=== PATIENT | female | born 1940 | race Caucasian/White ===

== ENCOUNTER 2016-11-21 12:03 | Outpatient (CLI) | payer MEDICARE, OTHER ==
[2015-11-15 19:26] VITALS: BP 140/42
[2016-11-21 12:38] LABS: BASOPHILS % 0.4 (0.0-1.5); EOSINOPHILS % 5.5 % (0.0-6.8); MEAN CORPUSCULAR HEMOGLOBIN 22.7 pg (28.0-34.0); MEAN CORPUSCULAR VOLUME 81.8 fl (80.0-100.0); NEUTROPHILS # 1.8 # k/uL (1.4-7.7)
[2016-11-21 12:52] LABS: eGFR (African) > 60; eGFR (Non-African) > 60
--- NOTE | 2016-11-21 15:51 | Diagnostic Imaging Report ---
[facility] [address] [facility].[address] [address] Report Submission Date: November 21, 2016 3:40:19 PM CDT Patient Study Name: LIBBY LAZCANO Date: November 21, 2016 12:23:25 PM CDT Modality Type: CR Gender: F Description: CHEST : 40 Institution: [facility] Physician: OWEN MCLEAN - OP 2 views of the chest History: PRODUCTIVE COUGH FOR A COUPLE WEEKS. SMOKER Findings: No comparison studies Cardiomegaly is present, aorta is tortuous Rightlower lung and lingular atelectasis is present. There is mild pulmonary vascular congestion. Left costophrenic angle is blunted Demineralized bones with loss of height of lower thoracic vertebral bodies Impression: Atelectasis right lower lung and lingula. Cardiomegaly. Mild pulmonary vascular congestion. Tiny left pleural effusion versus pleural thickening. Electronically signed on November 21, 2016 3:40:19 PM CDT by: Piedad MALDONADO
== END 2016-11-21 12:04 ==
LOC: RAD 12:03
PROVIDERS: ATTEND Family Medicine
DX: R60.0 Localized edema (principal); R05 Cough
CPT/HCPCS: 36415; 71020; 80048; 83880; 85025

== ENCOUNTER 2016-11-29 12:10 | Outpatient (CLI) | payer MEDICARE, OTHER ==
[2015-11-15 19:26] VITALS: BP 140/42
== END 2016-11-29 12:11 ==
LOC: CARD 12:10
PROVIDERS: ATTEND Internal Medicine Cardiovascular Disease
DX: R60.9 Edema, unspecified (principal)

== ENCOUNTER 2017-01-03 18:59 | Emergency (ER) | payer MEDICARE, OTHER ==
[2017-01-03] MEDS ORDERED: 0.9 % SODIUM CHLORIDE 1,000 ML IV ONE (19:12)
[2017-01-03] MEDS ORDERED: ONDANSETRON HCL/PF 4 MG/ 2ML VIAL ONE (19:12)
[2017-01-03 19:35] LABS: BASOPHILS % 0.4 (0.0-1.5); EOSINOPHILS % 2.9 % (0.0-6.8); MEAN CORPUSCULAR HEMOGLOBIN 29.2 pg (28.0-34.0); MEAN CORPUSCULAR VOLUME 96.1 fl (80.0-100.0); MONOCYTES % 7.6 % (0.0-11.0); NEUTROPHILS # 2.7 # k/uL (1.4-7.7)
[2017-01-03 19:41] VITALS: BP 169/82
[2017-01-03] MEDS: 0.9 % SODIUM CHLORIDE 1,000 ML IV ONE (19:42)
[2017-01-03] MEDS: ONDANSETRON HCL/PF 4 MG/ 2ML VIAL IVP ONE ×2 (19:42→21:50)
--- NOTE | 2017-01-03 19:44 | ED Physician Documentation ---
General Adult - HISTORIAN Historian: patient - HPI Stated Complaint: NV; MS CHANGES Chief Complaint: General Adult Further Comments: yes (76 year old female patient brought in by for complaints of nausea and increased confusion. states they usually go to the [facility] "when she gets like this and her ammonia is high". states she has been getting worse "for days". Patient states "it started a few hours ago.") - ROS CONST: recent illness EYES/ENT: none CVS/RESP: none GI/: none MS/SKIN/LYMPH: none NEURO/PSYCH: denies: headache - PAST HX Past History: hypertension, other (GERD, depression, pancytopenia, anemia) Other History: diabetes Type 2 Allergies/Adverse Reactions: Allergies Allergy/AdvReac Type Severity Reaction Status Date / Time metronidazole [From Flagyl] AdvReac Unknown Nausea/Vomi Verified 01/03/17 20:22 ting - SOCIAL HX Smoking History: cigarettes - FAMILY HX Family History: No - VITAL SIGNS Vital Signs: Vital Signs Temp Pulse Resp BP Pulse Ox 98.7 F 88 20 169/82 97 01/03/17 19:10 01/03/17 19:10 01/03/17 19:10 01/03/17 19:10 01/03/17 19:10 - REVIEWED ASSESSMENTS Nursing Assessment Reviewed: Yes Vitals Reviewed: Yes Progress - Progress Progress: Explained ammonia level was send out at [facility]. Patient states she took her lactulose today. Last BM this morning. 2014 Reviewed lab results with patient and . Requesting transfer to [facility]. [address] Recio in ER - patient's medical records show history of portal hypertension, hepatic encephalopathy, elevated ammonia and liver cirrhosis. Medicine paged for direct admit to floor. [address] Angel - patient accepted for observation admission, for evaluation of ammonia and possible treatment. 2129 Transfer held due to critical patient in ER. 2149 Dry heaves, patient c/o nausea - additional zofran given 2214 Patient resting quietly, VS stable - EKG/XRAY/CT EKG: rhythm (SR, rate 96, no acute changes. ) ED Results Lab/Radiology - Lab Results Lab Results: Lab Results 01/03/17 19:27 WBC 5.00 K/ul K/ul (4.00-12.00) RBC 3.92 M/ul M/ul (3.90-5.20) Hgb 11.5 g/dL L g/dL (12.0-16.0) Hct 37.6 % % (34.5-46.5) MCV 96.1 fl fl (80.0-100.0) MCH 29.2 pg pg (28.0-34.0) MCHC 30.4 g/dL g/dL (30.0-36.0) RDW 20.2 % H % (11.3-14.3) Plt Count 132 K/mm3 K/mm3 (130-400) Neut % (Auto) 54.5 % % (39.0-79.0) Lymph % (Auto) 31.7 % % (16.0-50.0) [place] % (Auto) 7.6 % % (0.0-11.0) Eos % (Auto) 2.9 % % (0.0-6.8) Baso % (Auto) 0.4 (0.0-1.5) Neut # (Auto) 2.7 # k/uL # k/uL (1.4-7.7) Lymph # (Auto) 1.6 # k/uL # k/uL (0.6-4.0) [place] # (Auto) 0.4 # k/uL # k/uL (0.0-0.9) Eos # (Auto) 0.2 # k/uL # k/uL (0.0-0.6) Baso # (Auto) 0.0 # k/uL # k/uL (0.0-0.5) Reactive Lymphs % 2.9 % % (0.0-5.0) Reactive Lymphs # 0.2 # k/uL # k/uL (0.0-0.8) - Radiology Radiology Impressions: Examination: CT head without contrast History: Loss of vision Comparison exam: 04 February 2014 Technique: Noncontrast head CT protocol. Findings: Ventricles and sulci are prominent, though consistent for patient age. Cerebrocerebellar parenchyma demonstrates periventricular low attenuation consistent with small vessel disease. No evidence for parenchymal hemorrhage. No evidence for mass or mass effect. No midline shift. No extra axial fluid collections. Partial visualization of the paranasal sinuses, mastoid air cells, orbits, skull and scalp without gross regularity. Impression: Advanced age related changes. No acute parenchymal process. No hemorrhage. Electronically signed on Jan 03, 2017 8:31:34 PM CDT by: Antione Gandhi - Orders Orders: ED Orders Category Date Time Status Continuous EKG monitoring Q30M Care 01/03/17 19:14 Active Continuous Pulse Oximetry Q30M Care 01/03/17 19:[address] IV Lock 1T Care 01/03/17 19:14 Active AMMONIA Stat Lab 01/03/17 19:26 Received BNP [NT-proBNP] Stat Lab 01/03/17 19:26 Received CBC/PLATELET/DIFF Stat Lab 01/03/17 19:27 Completed CMP Stat Lab 01/03/17 19:27 Received TROPONIN I (cTnI) Stat Lab 01/03/17 19:26 Received UA W/MICRO IF INDICATED Stat Lab 01/03/17 19:14 Ordered 0.9 % Sodium Chloride [Normal Saline] 1,000 ml Med 01/03/17 19:12 Discontinued IV .STK-MED 0.9 % Sodium Chloride [Normal Saline] 1,000 ml Med 01/03/17 19:15 Discontinued IV NOW Ondansetron HCl/Pf [Zofran 4 mg/2 ml] Med 01/03/17 19:12 Discontinued 4 mg .ROUTE .STK-MED ONE Ondansetron HCl/Pf [Zofran 4 mg/2 ml] Med 01/03/17 19:15 Discontinued 4 mg IVP NOW ONE Oxygen Daily Oxygen 01/03/17 19:15 Ordered EKG WITH COMPARISON Stat Ther 01/03/17 19:14 Ordered General Adult Physical Exam - PHYSICAL EXAM GENERAL APPEARANCE: moderate distress EENT: eye inspection normal, PEPE RESPIRATORY: no resp distress, chest non-tender, breath sounds normal CVS: heart sounds normal, equal pulses, no murmur, no gallop, PMI nml, no JVD, no friction rub, tachycardia ABDOMEN: soft, no organomegaly, no abdominal bruit, no distension, abnormal bowel sounds (hypoactive) SKIN: normal color, warm/dry, NR, INT, PAL, DR EXTREMITIES: non-tender, normal range of motion, no evidence of injury, no edema , J, YARD JACKER NEURO: oriented X3, CN's nml as tested, motor nml, sensation nml, mood/affect nml Discharge Clincal Impression: Change in mental status Qualifiers: Altered mental status type: disorientation Qualified Code(s): R41.0 - Disorientation, unspecified Referrals: Katrin Carias MD [Primary Care Provider] - 2 Days Condition: Stable Disposition: 01 HOME, SELF-CARE Decision to Admit: NO Decision Time: 21:28
[2017-01-03 19:47] LABS: eGFR (African) > 60; eGFR (Non-African) > 60
--- NOTE | 2017-01-04 05:54 | Diagnostic Imaging Report ---
ENRRIQUE BARRIOS (BARRY) - ER~ [facility] [address] [facility] [address] [place] [address]. [address] ~ ~ ~ ~ Report Submission Date: Jan 03, 2017 10:23:57 PM CDT Patient ~ Study Name: LIBBY LAZCANO ~ Date: Jan 03, 2017 10:02:24 PM CDT ~ Modality Type: CT\SR Gender: F ~ Description: CT BRAIN W/O CONTRAST : 40 ~ Institution: [facility] Physician: ENRRIQUE BARRIOS) - REGGIE ~ ~ ~ ~ Head CT without contrast Clinical history: ~Altered mental status. Technique: ~CT examination of the brain is performed in contiguous axial slices without the use of contrast. ~Sagittal and coronal reconstructions are performed by the technologist. ~Comparison is made to a prior study dated 2015. Findings: ~The fourth ventricle lies in a normal midline position. ~The ventricles and sulci are prominent secondary to atrophy. ~Chronic ischemic changes are present in the periventricular regions. ~There has been no interval development of hypodense or hyperdense mass or intracranial hemorrhage. ~ Intracranial atherosclerosis is demonstrated. ~The visualized paranasal sinuses and the mastoid air cells are clear. Impression: 1. ~Atrophy and chronic small vessel ischemic changes. 2. ~Intracranial atherosclerosis. 3. ~No acute intracranial changes. ~ Electronically signed on Jan 03, 2017 10:23:57 PM CDT by: Antoni MALDONADO
== END 2017-01-03 22:15 | disposition home or self-care (01) ==
LOC: ED 18:59
DX: R41.0 Disorientation, unspecified (principal)
CPT/HCPCS: 70450; 80053; 82140; 83880; 84484; 85025; 96361; 96374; 99283; J2405; J7030; S1016

== ENCOUNTER 2017-01-20 17:35 | Observation (INO) | payer MEDICARE, OTHER ==
[2017-01-20 18:24] LABS: APPEARANCE,URINE Cloudy (CLEAR); COLOR,URINE Yellow (YELLOW); OCCULT BLOOD,URINE 2+ (NEGATIVE)
[2017-01-20 18:36] LABS: BASOPHILS % 0.5 (0.0-1.5); EOSINOPHILS % 5.1 % (0.0-6.8); MEAN CORPUSCULAR HEMOGLOBIN 30.5 pg (28.0-34.0); MONOCYTES % 7.4 % (0.0-11.0); NEUTROPHILS # 1.8 # k/uL (1.4-7.7)
[2017-01-20 18:46] LABS: eGFR (African) > 60; eGFR (Non-African) > 60
[2017-01-20] MEDS ORDERED: VANCOMYCIN HCL 1 GM in 0.9 % SODIUM CHLORIDE 500 ML IV ONE (20:14)
--- NOTE | 2017-01-20 20:39 | ED Physician Documentation ---
Altered Mental Status - HISTORIAN Historian: paramedics - HPI Stated Complaint: Mental Status Changes Chief Complaint: Altered Mental Status Additional Information: Pt. apparently called 911 then when paramedics arrived stated she did not call them. Brought in by EMS because she was confused and lives alone at the scene. Onset: cannot confirm onset Duration: sudden onset Last known Well Date: 01/19/17 Last Known Well Time: 12:00 Last known Well Code/Unknown Code: Unknown Character of Altered Mental Status: confused Context: other (lives alone because her is in the hospital) Cognition is Usually: alert, oriented x3 Gait is Usually: walks w/o assistance Further Comments: no - ROS EYES/ENT: none CVS/RESP: none GI/: none MS/SKIN/LYMPH: none NEURO/PSYCH: none - PAST HX Past History: confusion, diabetes Type 2, depression Other History: hypertension, other (gerd) Surgeries/Procedures: none Immunizations: referred to PCP Allergies/Adverse Reactions: Allergies Allergy/AdvReac Type Severity Reaction Status Date / Time metronidazole [From Flagyl] AdvReac Unknown Nausea/Vomi Verified 01/03/17 20:22 ting - SOCIAL HX Smoking History: non-smoker Alcohol Use: none Drug Use: none - FAMILY HX Family History: no significant history - VITAL SIGNS Vital Signs: Vital Signs Temp Pulse Resp BP Pulse Ox 98.8 F 78 18 162/71 98 01/20/17 17:35 01/20/17 17:57 01/20/17 17:35 01/20/17 17:35 01/20/17 19:57 - REVIEWED ASSESSMENTS Nursing Assessment Reviewed: Yes Vitals Reviewed: Yes Progress - Results/Orders Results/Orders: cbc, cmp, ua, pt/ptt, trop, bnp, cxr, ekg ordered - Progress Progress: pt. stable entire time in er Critical Care Note - Critical Care Note Total Time (mins): 0 ED Results Lab/Radiology - Lab Results Lab Results: Lab Results 01/20/17 01/20/17 01/20/17 18:15 18:15 18:15 WBC RBC Hgb Hct MCV MCH MCHC RDW Plt Count Neut % (Auto) Lymph % (Auto) [place] % (Auto) Eos % (Auto) Baso % (Auto) Neut # (Auto) Lymph # (Auto) [place] # (Auto) Eos # (Auto) Baso # (Auto) Reactive Lymphs % Reactive Lymphs # PT 12.7 Seconds H Seconds (9.4-11.6) INR 1.21 H (0.9-1.2) APTT Pending Sodium Potassium Chloride Carbon Dioxide BUN Creatinine Estimated Creat Clear Est GFR ( Amer) Est GFR (Non-Af Amer) Glucose Calcium Total Bilirubin AST ALT Alkaline Phosphatase Troponin I < 0.03 ng/mL L ng/mL (0.03-0.06) NT-Pro-B Natriuret Pep 257.3 pg/mL pg/mL (15.0-450.0) Total Protein Albumin Urine Color Yellow (YELLOW) Urine Appearance Cloudy (CLEAR) Urine pH 6.0 (5.0 - 8.0) Ur Specific [place] >=1.030 H (1.010-1.030) Urine Protein 2+ mg/dL H mg/dL (NEGATIVE) Urine Ketones Negative mg/dL mg/dL (NEGATIVE) Urine Occult Blood 2+ H (NEGATIVE) Urine Nitrite Positive (NEGATIVE) Urine Bilirubin 1+ H (NEGATIVE) Urine Urobilinogen 1.0 Eu Eu (0.2-1.0) Ur Leukocyte Esterase 1+ H (NEGATIVE) Urine Glucose Trace mg/dL mg/dL (NEGATIVE) 01/20/17 01/20/17 18:15 18:15 WBC 4.50 K/ul K/ul (4.00-12.00) RBC 3.54 M/ul L M/ul (3.90-5.20) Hgb 10.8 g/dL L g/dL (12.0-16.0) Hct 34.0 % L % (34.5-46.5) MCV 96.0 fl fl (80.0-100.0) MCH 30.5 pg pg (28.0-34.0) MCHC 31.8 g/dL g/dL (30.0-36.0) RDW 19.4 % H % (11.3-14.3) Plt Count 121 K/mm3 L K/mm3 (130-400) Neut % (Auto) 40.4 % % (39.0-79.0) Lymph % (Auto) 43.5 % % (16.0-50.0) [place] % (Auto) 7.4 % % (0.0-11.0) Eos % (Auto) 5.1 % % (0.0-6.8) Baso % (Auto) 0.5 (0.0-1.5) Neut # (Auto) 1.8 # k/uL # k/uL (1.4-7.7) Lymph # (Auto) 1.9 # k/uL # k/uL (0.6-4.0) [place] # (Auto) 0.3 # k/uL # k/uL (0.0-0.9) Eos # (Auto) 0.2 # k/uL # k/uL (0.0-0.6) Baso # (Auto) 0.0 # k/uL # k/uL (0.0-0.5) Reactive Lymphs % 3.2 % % (0.0-5.0) Reactive Lymphs # 0.1 # k/uL # k/uL (0.0-0.8) PT INR APTT Sodium 142 mmol/L mmol/L (136-145) Potassium 4.1 mmol/L mmol/L (3.5-5.0) Chloride 109 mmol/L mmol/L (98-110) Carbon Dioxide 28 mmol/L mmol/L (20-32) BUN 21 mg/dL mg/dL (10-26) Creatinine 0.6 mg/dL mg/dL (0.4-1.5) Estimated Creat Clear 161 Est GFR ( Amer) > 60 (60 - ) Est GFR (Non-Af Amer) > 60 (60 - ) Glucose 126 mg/dL H mg/dL (70-99) Calcium 9.1 mg/dL mg/dL (8.5-10.5) Total Bilirubin 0.7 mg/dL mg/dL (0.2-1.2) AST 43 U/L H U/L (0-41) ALT 24 U/L U/L (0-45) Alkaline Phosphatase 102 U/L U/L (46-116) Troponin I NT-Pro-B Natriuret Pep Total Protein 5.6 g/dL L g/dL (6.0-8.5) Albumin 3.1 g/dL g/dL (3.0-5.5) Urine Color Urine Appearance Urine pH Ur Specific [place] Urine Protein Urine Ketones Urine Occult Blood Urine Nitrite Urine Bilirubin Urine Urobilinogen Ur Leukocyte Esterase Urine Glucose - Radiology Radiology Impressions: cxr clear, right hand/wrist/forearm x-ray neg - Orders Orders: ED Orders Category Date Time Status Arterial Blood Gas 1T Care 01/20/17 18:17 Active Continuous Pulse Oximetry Q1H Care 01/20/17 17:57 Active Telemetry NOW Care 01/20/17 17:57 Active CHEST 1 VIEW [RAD] Routine Exams 01/20/[address] BRAIN W/O CONTRAST Stat Exams 01/20/17 Taken FOREARM 2 VIEWS [RAD] Stat Exams 01/20/17 Taken HAND 3 VIEWS OR MORE [RAD] Stat Exams 01/20/17 Taken WRIST 3 VIEWS OR MORE [RAD] Stat Exams 01/20/17 Taken AMMONIA Routine Lab 01/20/17 Ordered CBC/PLATELET/DIFF Routine Lab 01/20/17 18:15 Completed CMP Routine Lab 01/20/17 18:15 Completed NT-proBNP Routine Lab 01/20/17 18:15 Completed PT-INR Routine Lab 01/20/17 18:15 Results PTT Routine Lab 01/20/17 18:15 Results TROPONIN I (cTnI) Routine Lab 01/20/17 18:15 Completed URINALYSIS Routine Lab 01/20/17 18:15 Completed URINE CULTURE Routine Lab 01/20/17 18:15 Received Vancomycin HCl [Vancocin] 1 gm Med 01/20/17 20:14 Active 0.9 % Sodium Chloride [Normal Saline] 500 ml IV NOW EKG WITH COMPARISON Routine Ther 01/20/17 Ordered Transfer Routine Transfer 01/20/17 Ordered Altered Mental Status Physical - Physical Exam General Appearance: no acute distress Neuro/Psych: other (confused) no evidence of acute CVA, disoriented (to place, time, president, date), other ( responds appropriately to commands) nml as tested Cerebellar Exam: nml as tested Peripheral Exam: motor nml, sensation nml, reflexes nml HEENT: PEPE, EOM's intact, no apparent trauma, ENT inspection nml, oropharynx nml, airway intact Neck: normal inspection, thyroid normal, supple Respiratory: no resp distress, chest non-tender, breath sounds normal. No: wheezes, rales, rhonchi CVS: reg rate & rhythm, heart sounds normal, equal pulses, no murmur, no gallop , PMI nml, no JVD, no friction rub Abdomen: non-tender, no organomegaly, nml bowel sounds, no distention Skin: warm/dry, normal color Extremities: normal range of motion, no evidence of injury, no edema, other ( tender right wrist/distal forearm (possible secondary to IV) as x-ray neg) Discharge Clincal Impression: Urinary tract infection Qualifiers: Urinary tract infection type: acute cystitis Hematuria presence: without hematuria Qualified Code(s): N30.00 - Acute cystitis without hematuria Mental status change Qualifiers: Altered mental status type: disorientation Qualified Code(s): R41.0 - Disorientation, unspecified Comments: Case discussed with Ms. Basilio who accepts admission for Dr. Carias. Condition: Stable Disposition: ADMITTED INPATIENT Decision to Admit: [id number] Decision Time: 08:00
[2017-01-20] MEDS: 0.9 % SODIUM CHLORIDE 1,000 ML IV SCH (21:29)
[2017-01-20] MEDS ORDERED: ENOXAPARIN SODIUM 30 MG/0.3 ML DISP.SYRIN SQ ONE (21:31)
[2017-01-20] MEDS: ENOXAPARIN SODIUM 30 MG/0.3 ML DISP.SYRIN SQ SCH (21:34)
[2017-01-20] MEDS ORDERED: VANCOMYCIN HCL 1 GM VIAL IV ONE (21:36)
[2017-01-20] MEDS ORDERED: 0.9 % SODIUM CHLORIDE 500 ML IV ONE (21:36)
[2017-01-20] MEDS: INSULIN DETEMIR 100 UNIT/ML 3ML PEN.INJCTR SQ SCH (22:03)
[2017-01-20] MEDS: INSULIN REGULAR, HUMAN 100 UNIT/ML 3ML VIAL SQ SCH (22:03)
[2017-01-20] MEDS: VANCOMYCIN HCL 1 GM in 0.9 % SODIUM CHLORIDE 250 ML IV SCH (22:04)
[2017-01-20 22:17] VITALS: BMI 38.4
--- NOTE | 2017-01-21 00:10 | Diagnostic Imaging Report ---
CASPER MADDEN~ [facility] [address] [facility] [address] [place], [place]. [address] ~ ~ ~ ~ Report Submission Date: Jan 20, 2017 6:43:44 PM CDT Patient ~ Study Name: LIBBY LAZCANO ~ Date: Jan 20, 2017 6:19:42 PM CDT ~ Modality Type: CT\SR Gender: F ~ Description: CT BRAIN W/O CONTRAST : 40 ~ Institution: [facility] Physician: CASPER MADDEN ~ ~ ~ ~ Examination: CT head without contrast History:~ Mental status changes Comparison exam: 03 January 2017 Technique: Noncontrast head CT protocol. Findings: Ventricles and sulci are prominent, though consistent for patient age. Cerebrocerebellar parenchyma demonstrates periventricular low attenuation consistent with small vessel disease. No evidence for parenchymal hemorrhage. No evidence for mass or mass effect. No midline shift. No extra axial fluid collections. Partial visualization of the paranasal sinuses, mastoid air cells, orbits, skull and scalp without gross regularity. Streak artifact from dental hardware. Motion artifact. Impression: Stable age related changes. No acute parenchymal process. No hemorrhage. ~ Electronically signed on Jan 20, 2017 6:43:44 PM CDT by: Antione MALDONADO
--- NOTE | 2017-01-21 00:11 | Diagnostic Imaging Report ---
CASPER MADDEN~ [facility] [address] [address] ~ ~ ~ ~ Report Submission Date: Jan 20, 2017 7:20:08 PM CDT Patient ~ Study Name: LIBBY LAZCANO ~ Date: Jan 20, 2017 6:38:01 PM CDT ~ Modality Type: CR Gender: F ~ Description: UPPER EXTREMITY : 40 ~ Institution: [facility] Physician: CASPER MADDEN ~ ~ ~ ~ Examination: Plain film wrist History: Wrist discomfort Comparison exams: None available Findings: 3 views the wrist demonstrates osteopenia. Advanced degenerative changes involving the head of the scaphoid bone as well as the 1st carpometacarpal articulation. IV in place. No soft tissue abnormalities. Impression: Degenerative changes. No evidence for fracture. ~ Electronically signed on Jan 20, 2017 7:20:08 PM CDT by: Antione MALDONADO
--- NOTE | 2017-01-21 00:12 | Diagnostic Imaging Report ---
CASPER MADDEN~ [address] [address] ~ ~ ~ ~ Report Submission Date: Jan 20, 2017 7:22:21 PM CDT Patient ~ Study Name: LIBBY LAZCANO ~ Date: Jan 20, 2017 6:33:40 PM CDT ~ Modality Type: CR Gender: F ~ Description: UPPER EXTREMITY : 40 ~ Institution: Physician: CASPER MADDEN ~ ~ ~ ~ Examination: Plain film hand History: Hand discomfort Comparison exams: None available Findings: 3 views the hand demonstrates osteopenia. Advanced degenerative changes involving the head of the scaphoid bone as well as the 1st carpometacarpal articulation. Scattered articular degenerative changes. No fracture. IV in place. No soft tissue abnormalities. Impression: Degenerative changes. No evidence for fracture. ~ Electronically signed on Jan 20, 2017 7:22:21 PM CDT by: Antione MALDONADO
--- NOTE | 2017-01-21 00:13 | Diagnostic Imaging Report ---
CASPER MADDEN~ [facility] [address] [address] ~ ~ ~ ~ Report Submission Date: Jan 20, 2017 7:24:17 PM CDT Patient ~ Study Name: LIBBY LAZCANO ~ Date: Jan 20, 2017 6:49:20 PM CDT ~ Modality Type: CR Gender: F ~ Description: UPPER EXTREMITY : 40 ~ Institution: [facility] Physician: CASPER MADDEN ~ ~ ~ ~ Examination: Plain film forearm History: Discomfort Comparison exams: None available Findings: 2 views of the radius and ulna demonstrates osteopenia. No evidence for fracture line. IV in place. No soft tissue abnormality. Impression: No acute osseous abnormality. ~ Electronically signed on Jan 20, 2017 7:24:17 PM CDT by: Antione MALDONADO
--- NOTE | 2017-01-21 00:14 | Diagnostic Imaging Report ---
CASPER MADDEN~ [facility] [address] [address] ~ ~ ~ ~ Report Submission Date: Jan 20, 2017 7:26:04 PM CDT Patient ~ Study Name: LIBBY LAZCANO ~ Date: Jan 20, 2017 7:00:08 PM CDT ~ Modality Type: CR Gender: F ~ Description: CHEST : 40 ~ Institution: [facility] Physician: CASPER MADDEN ~ ~ ~ ~ Examination: Portable chest History: Chest discomfort Findings: Single view of the chest demonstrates a prominent cardiac silhouette. Mildly tortuous aorta. Lung guallpa without focal infiltrate. No blunting of the costophrenic margins. Osseous structures are appropriate for age. Impression: Prominent cardiac silhouette. No acute pulmonary process. ~ Electronically signed on Jan 20, 2017 7:26:04 PM CDT by: Antione MALDONADO
[2017-01-21] MEDS ORDERED: HYDROCHLOROTHIAZIDE 25 MG TABLET PO ONE (03:44)
[2017-01-21] MEDS ORDERED: ENOXAPARIN SODIUM 30 MG/0.3 ML DISP.SYRIN SQ ONE (03:44)
[2017-01-21] MEDS ORDERED: PANTOPRAZOLE SODIUM 40 MG TABLET ONE ×2 (03:45→14:55)
[2017-01-21] MEDS ORDERED: LOSARTAN POTASSIUM 50 MG TABLET PO ONE (03:45)
[2017-01-21] MEDS ORDERED: ESCITALOPRAM OXALATE 10 MG TABLET PO ONE (03:45)
[2017-01-21] MEDS ORDERED: FERROUS SULFATE 325 MG TABLET PO ONE ×2 (03:45→14:56)
[2017-01-21] MEDS ORDERED: VANCOMYCIN HCL 1 GM VIAL IV ONE (03:46)
[2017-01-21] MEDS: PANTOPRAZOLE SODIUM 40 MG TABLET PO SCH ×2 (06:06→17:34)
[2017-01-21 06:38] LABS: ABG PH 7.52 (7.35-7.45)
[2017-01-21 06:39] LABS: ABG BASE EXCESS 4.3 (-2 - +2)
[2017-01-21] MEDS: INSULIN REGULAR, HUMAN 100 UNIT/ML 3ML VIAL SQ SCH ×4 (07:32→20:52)
[2017-01-21] MEDS: LOSARTAN POTASSIUM 50 MG TABLET PO SCH (08:46)
[2017-01-21] MEDS: HYDROCHLOROTHIAZIDE 25 MG TABLET PO SCH (08:47)
[2017-01-21] MEDS: ESCITALOPRAM OXALATE 10 MG TABLET PO SCH (08:49)
--- NOTE | 2017-01-21 10:35 | History and Physical Report ---
History of Present Illnes - History of Present Illness Reason for Visit: confusion History of Present Illness: Ana is a 76yo woman with a history of multiple medical problems, including DM2 and MIRANDA with encephalopathy. She has been on lactulose in the past. She was brought by [facility] to [facility] ER yesterday afternoon after being found confused by her home health aid. She lives with her , but he is currently sick and hospitalized elsewhere. She reports that she remembers being confused yesterday, but does not remember calling the ambulance or presenting to the hospital. She currently feels fine. She denies pain or shortness of breath. She is not a very good historian. - Past Medical History Cardiac: HTN Gastrointestinal: GERD Heme/Onc: Anemia NOS, Other (uterine CA) Hepatobiliary: Cirrhosis, Other (MIRANDA) Psych: Depression Endocrine: Diabetes - Past Surgical History Past Surgical History: Appendectomy, Cholecystectomy, Hysterectomy, Hernia Repair, Total Knee Replacement (R), Tonsillectomy, Other (breast biopsy) - Past Family History Mother Family History: CVA Father Family History: Other (COPD) - Past Social History Smoke: No Alcohol: None Lives: With Family - Health Maintenance Health Maintenance: Tetanus, Pneumococcal Vaccine Pneumonia Vaccine: Yes (23) Resuscitation Status: Resusciation Status Resuscitation Status Full Code Review of Systems - Review of Systems Constitutional: Weakness. negative: Fever, Chills Eyes: negative: pain, eyelid inflammation ENT: negative: Ear Pain, Nose Congestion Respiratory: negative: Cough, Wheezing Cardiovascular: negative: Chest Pain, Palpitations, Edema Gastrointestinal: negative: Vomiting, Abdominal Pain Genitourinary: negative: Dysuria, Frequency Musculoskeletal: negative: Neck Pain, Leg Pain Skin: negative: Rash, Lesions Neurological: Weakness, Confusion - Medications/Allergies Allergies/Adverse Reactions: Allergies Allergy/AdvReac Type Severity Reaction Status Date / Time metronidazole [From Flagyl] AdvReac Unknown Nausea/Vomi Verified 01/03/17 20:22 ting Current Inpatient Medications: Current Inpatient Medications Enoxaparin Sodium (Lovenox) 30 mg SQ QD [facility] Stop: 02/02/17 21:08 Last Admin: 01/20/17 21:34 Dose: 30 mg Escitalopram Oxalate (Lexapro) 20 mg PO DAILY [facility] Last Admin: 01/21/17 08:49 Dose: 20 mg Ferrous Sulfate (Feosol) 325 mg PO [id number] [facility] Hydrochlorothiazide (Hydrodiuril) 12.5 mg PO DAILY [facility] Last Admin: 01/21/17 08:47 Dose: 12.5 mg Sodium Chloride (Normal Saline) 1,000 mls @ 42 mls/hr IV Q10H [facility] Last Admin: 01/20/17 21:29 Dose: 42 mls/hr Vancomycin HCl 1 gm/ Sodium (Chloride) 250 mls @ 250 mls/hr IV QD [facility] Last Admin: 01/20/17 22:04 Dose: Not Given Insulin Detemir (Levemir Flex-Pen) 50 unit SQ HS [facility] Last Admin: 01/20/17 22:03 Dose: Not Given Insulin Human Regular (Humulin R) 0 unit SQ CHEMQID [facility] PRN Reason: Protocol Last Admin: 01/21/17 07:32 Dose: Not Given Losartan Potassium (Cozaar) 100 mg PO DAILY [facility] Last Admin: 01/21/17 08:46 Dose: 100 mg Pantoprazole Sodium (Protonix) 40 mg PO 717 [facility] Last Admin: 01/21/17 06:06 Dose: 40 mg Exam - Exam Vital Signs: Vital Signs (72 hours) 01/20/17 01/20/17 01/20/17 20:30 20:38 21:00 Temperature 98.4 F 98.4 F Pulse Rate Pulse Rate [ 68 64 Pulse ox] Respiratory 16 20 Rate Blood Pressure 143/45 134/62 [Left Arm] Blood Pressure [Right Arm] O2 Sat by Pulse 97 96 96 Oximetry 01/20/17 01/20/17 01/20/17 21:07 22:00 22:07 Temperature 98.4 F Pulse Rate 76 76 Pulse Rate [ 64 Pulse ox] Respiratory Rate Blood Pressure 134/62 [Left Arm] Blood Pressure [Right Arm] O2 Sat by Pulse 96 96 Oximetry 01/20/17 01/20/17 01/21/17 22:09 22:26 00:09 Temperature Pulse Rate 76 Pulse Rate [ Pulse ox] Respiratory Rate Blood Pressure [Left Arm] Blood Pressure [Right Arm] O2 Sat by Pulse 96 96 Oximetry 01/21/17 01/21/17 01/21/17 00:26 02:00 04:00 Temperature 97.9 F Pulse Rate 64 63 63 Pulse Rate [ 66 Pulse ox] Respiratory 20 Rate Blood Pressure [Left Arm] Blood Pressure 140/60 [Right Arm] O2 Sat by Pulse 97 97 Oximetry 01/21/17 01/21/17 01/21/17 05:13 06:00 08:00 Temperature 98.4 F Pulse Rate 63 73 Pulse Rate [ 67 Pulse ox] Respiratory 16 Rate Blood Pressure [Left Arm] Blood Pressure 133/50 [Right Arm] O2 Sat by Pulse 97 97 97 Oximetry General: Alert, Oriented to Person, Oriented to Place, Cooperative, No acute distress. No: Oriented to Time HEENT: Atraumatic, PERRLA, EOMI Neck: Normal Range of Motion. No: Lymphadenopathy Lungs: Clear to auscultation. No: Respiratory Distress, Wheezes Cardiovascular: Regular rate, Normal S1, Normal S2 Abdomen: Soft. No: No tenderness, Distended, Rigid Integumentary: Normal, [place], Warm, Dry Extremities: No cyanosis, No edema, No tenderness/swelling Neurological: Normal speech, Cranial nerves 3-12 NL Psych/Mental Status: Mood NL, Other (pleasant and cooperative) - Laboratory Results Laboratory Results: UA: LE+1, Nitrite+ EKG, Chest Xray, Troponin all negative BNP 257 Awaiting ammonia level Assessment/Plan - Assessment/Plan (1) Mental status change Status: Acute Current Visit: Yes Qualifiers: Altered mental status type: disorientation Qualified Code(s): R41.0 - Disorientation, unspecified Assessment: Likely secondary to UTI, treatment started, will await ammonia level, lactulose started (2) Urinary tract infection Status: Acute Current Visit: Yes Qualifiers: Urinary tract infection type: acute cystitis Hematuria presence: without hematuria Qualified Code(s): N30.00 - Acute cystitis without hematuria Assessment: Vancomycin already started. Will continue and monitor. VTE Assessment - RISK FACTOR SCORE VTE RISK FACTOR SCORES: AGE OVER 60 YEARS, ACUTE INFECTION OTHER THEN SEPSIS, OBESITY, ANTICIPATED BED CONFINEMENT OR IMMOBILIZATION > 24 HOURS - RISK VTE HIGH RISK: SCORE OF 3-4 (RISK PROXIMAL DVT 4-8%) PROPHYLAXIS NEEDED
[2017-01-21] MEDS: FERROUS SULFATE 325 MG TABLET PO SCH ×2 (12:10→19:22)
[2017-01-21] MEDS: 0.9 % SODIUM CHLORIDE 1,000 ML IV SCH ×2 (13:59→18:20)
[2017-01-21] MEDS ORDERED: INSULIN REGULAR, HUMAN 100 UNIT/ML 3ML VIAL ONE (16:36)
[2017-01-21 17:19] LABS: MEAN CORPUSCULAR HEMOGLOBIN 30.2 pg (28.0-34.0); MEAN CORPUSCULAR VOLUME 95.5 fl (80.0-100.0)
[2017-01-21 17:28] LABS: eGFR (African) > 60; eGFR (Non-African) > 60
[2017-01-21] MEDS ORDERED: INSULIN DETEMIR 100 UNIT/ML 3ML PEN.INJCTR SQ ONE (20:50)
[2017-01-21] MEDS: INSULIN DETEMIR 100 UNIT/ML 3ML PEN.INJCTR SQ SCH (20:53)
[2017-01-21] MEDS: ENOXAPARIN SODIUM 30 MG/0.3 ML DISP.SYRIN SQ SCH (20:57)
[2017-01-21] MEDS ORDERED: 0.9 % SODIUM CHLORIDE 250 ML IV ONE (21:00)
[2017-01-21] MEDS: VANCOMYCIN HCL 1 GM in 0.9 % SODIUM CHLORIDE 250 ML IV SCH (22:00)
[2017-01-21] MEDS ORDERED: 0.9 % SODIUM CHLORIDE 1,000 ML IV ONE (23:39)
[2017-01-22] MEDS ORDERED: ESCITALOPRAM OXALATE 10 MG TABLET PO ONE ×2 (05:17→08:54)
[2017-01-22] MEDS ORDERED: HYDROCHLOROTHIAZIDE 25 MG TABLET PO ONE (05:17)
[2017-01-22] MEDS ORDERED: LOSARTAN POTASSIUM 50 MG TABLET PO ONE (05:18)
[2017-01-22] MEDS ORDERED: PANTOPRAZOLE SODIUM 40 MG TABLET ONE (05:18)
[2017-01-22] MEDS ORDERED: FERROUS SULFATE 325 MG TABLET PO ONE (05:18)
[2017-01-22] MEDS: 0.9 % SODIUM CHLORIDE 1,000 ML IV SCH (06:06)
[2017-01-22] MEDS: PANTOPRAZOLE SODIUM 40 MG TABLET PO SCH (06:07)
[2017-01-22 06:12] VITALS: BP 158/66
[2017-01-22] MEDS: INSULIN REGULAR, HUMAN 100 UNIT/ML 3ML VIAL SQ SCH ×2 (07:40→12:20)
[2017-01-22] MEDS: LOSARTAN POTASSIUM 50 MG TABLET PO SCH (08:52)
[2017-01-22] MEDS: HYDROCHLOROTHIAZIDE 25 MG TABLET PO SCH (08:52)
[2017-01-22] MEDS: ESCITALOPRAM OXALATE 10 MG TABLET PO SCH (08:55)
--- NOTE | 2017-01-22 09:01 | Inpatient Progress Note ---
Subjective - Required Recertification Statement I anticipate X number of days because-include discharge plan: Anticipate discharge today - Review of Systems Events since last encounter: Ana did well overnight, is comfortable. She has had multiple stools, loose, but not diarrhea. She denies abdominal pain or nausea. General: Appetite (good). Denies: Chills HEENT: Denies: Head Aches, Visual Changes Pulmonary: Denies: Cough, Pleuritic Chest Pain Cardiovascular: Denies: Chest Pain, Palpitations Gastrointestinal: Other (loose stool). Denies: Nausea, Vomiting Genitourinary: Denies: Dysuria, Frequency Neurological: Weakness, Confusion Objective - Exam Vitals and I&O: Vital Signs Temp 98.7 F 01/22/17 08:54 Pulse 77 01/22/17 08:54 Resp 20 01/22/17 08:54 BP 158/66 01/22/17 08:54 Pulse Ox 96 01/22/17 08:54 Intake & Output 01/21/17 01/21/17 01/22/17 11:59 23:59 11:59 Intake Total 1352 980 810 Balance 1352 980 810 Weight 106.424 kg 106.424 kg Intake: IV 1112 150 630 Left Forearm 1112 150 Left Hand 630 Oral 240 830 180 Other: Voiding Method Toilet Toilet Toilet # Voids 2 4 4 General: Oriented to Person, Cooperative, No acute distress. No: Oriented to Place, Oriented to Time HEENT: Atraumatic, PERRLA, EOMI Neck: Supple, No JVD Lungs: Clear to auscultation. No: Respiratory Distress, Wheezes Cardiovascular: Regular rate, Normal S1, Normal S2 Abdomen: Soft, No tenderness, No masses, Hyperactive Bowel Sounds Extremities: No cyanosis, No edema Skin: Normal, [place], Warm, Dry Neurological: Normal speech, Cranial nerves 3-12 NL Psych/Mental Status: Mood NL, Other (pleasant, still not oriented to time or place) - Results Results: Laboratory Results WBC 3.40 K/ul (4.00-12.00) L 01/21/17 11:00 RBC 3.73 M/ul (3.90-5.20) L 01/21/17 11:00 Hgb 11.2 g/dL (12.0-16.0) L 01/21/17 11:00 Hct 35.6 % (34.5-46.5) 01/21/17 11:00 MCV 95.5 fl (80.0-100.0) 01/21/17 11:00 MCH 30.2 pg (28.0-34.0) 01/21/17 11:00 MCHC 31.6 g/dL (30.0-36.0) 01/21/17 11:00 RDW 19.2 % (11.3-14.3) H 01/21/17 11:00 Plt Count 125 K/mm3 (130-400) L 01/21/17 11:00 Neut % (Auto) 40.4 % (39.0-79.0) 01/20/17 18:15 Lymph % (Auto) 43.5 % (16.0-50.0) 01/20/17 18:15 Coal % (Auto) 7.4 % (0.0-11.0) 01/20/17 18:15 Eos % (Auto) 5.1 % (0.0-6.8) 01/20/17 18:15 Baso % (Auto) 0.5 (0.0-1.5) 01/20/17 18:15 Neut # (Auto) 1.8 # k/uL (1.4-7.7) 01/20/17 18:15 Lymph # (Auto) 1.9 # k/uL (0.6-4.0) 01/20/17 18:15 Coal # (Auto) 0.3 # k/uL (0.0-0.9) 01/20/17 18:15 Eos # (Auto) 0.2 # k/uL (0.0-0.6) 01/20/17 18:15 Baso # (Auto) 0.0 # k/uL (0.0-0.5) 01/20/17 18:15 Reactive Lymphs % 3.2 % (0.0-5.0) 01/20/17 18:15 Reactive Lymphs # 0.1 # k/uL (0.0-0.8) 01/20/17 18:15 PT 12.7 Seconds (9.4-11.6) H 01/20/17 18:15 INR 1.21 (0.9-1.2) H 01/20/17 18:15 APTT Cancelled 01/20/17 18:15 pH 7.52 (7.35-7.45) H 01/20/17 18:11 pCO2 33 mmhg (35-45) L 01/20/17 18:11 pO2 124 mmhg (80-100) H 01/20/17 18:11 HCO3 29.9 Meq/L (21-26) H 01/20/17 18:11 ABG O2 Sat Calc/Toña 99 % (93-100) 01/20/17 18:11 ABG Base Excess 4.3 (-2 - +2) H 01/20/17 18:11 Sodium 140 mmol/L (136-145) 01/21/17 10:59 Potassium 4.2 mmol/L (3.5-5.0) 01/21/17 10:59 Chloride 108 mmol/L (98-110) 01/21/17 10:59 Carbon Dioxide 27 mmol/L (20-32) 01/21/17 10:59 BUN 16 mg/dL (10-26) 01/21/17 10:59 Creatinine 0.7 mg/dL (0.4-1.5) 01/21/17 10:59 Estimated Creat Clear 135 01/21/17 10:59 Est GFR ( Amer) > 60 (60-) 01/21/17 10:59 Est GFR (Non-Af Amer) > 60 (60-) 01/21/17 10:59 Glucose 162 mg/dL (70-99) H 01/21/17 10:59 Calcium 9.1 mg/dL (8.5-10.5) 01/21/17 10:59 Total Bilirubin 0.8 mg/dL (0.2-1.2) 01/21/17 10:59 AST 47 U/L (0-41) H 01/21/17 10:59 ALT 27 U/L (0-45) 01/21/17 10:59 Alkaline Phosphatase 111 U/L (46-116) 01/21/17 10:59 Troponin I < 0.03 ng/mL (0.03-0.06) L 01/20/17 18:15 NT-Pro-B Natriuret Pep 257.3 pg/mL (15.0-450.0) 01/20/17 18:15 Total Protein 6.0 g/dL (6.0-8.5) 01/21/17 10:59 Albumin 3.3 g/dL (3.0-5.5) 01/21/17 10:59 Urine Color Yellow (YELLOW) 01/20/17 18:15 Urine Appearance Cloudy (CLEAR) 01/20/17 18:15 Urine pH 6.0 (5.0 - 8.0) 01/20/17 18:15 Ur Specific Gate >=1.030 (1.010-1.030) H 01/20/17 18:15 Urine Protein 2+ mg/dL (NEGATIVE) H 01/20/17 18:15 Urine Ketones Negative mg/dL (NEGATIVE) 01/20/17 18:15 Urine Occult Blood 2+ (NEGATIVE) H 01/20/17 18:15 Urine Nitrite Positive (NEGATIVE) 01/20/17 18:15 Urine Bilirubin 1+ (NEGATIVE) H 01/20/17 18:15 Urine Urobilinogen 1.0 Eu (0.2-1.0) 01/20/17 18:15 Ur Leukocyte Esterase 1+ (NEGATIVE) H 01/20/17 18:15 Urine Glucose Trace mg/dL (NEGATIVE) 01/20/17 18:15 Urine culture pending Assessment/Plan - Assessment/Plan (1) Mental status change Status: Acute Current Visit: Yes Qualifiers: Altered mental status type: disorientation Qualified Code(s): R41.0 - Disorientation, unspecified Assessment: Stable Plan: Will restart Lactulose along with Limotil, Ammonia level still pending. Working on getting her to [facility]. (2) Urinary tract infection Status: Acute Current Visit: Yes Qualifiers: Urinary tract infection type: acute cystitis Hematuria presence: without hematuria Qualified Code(s): N30.00 - Acute cystitis without hematuria Assessment: Stable Plan: Will stop Vancomycin and switch to Cipro. She is urinating well. Urine culture is pending.
[2017-01-22] MEDS ORDERED: DIPHENOXYLATE HCL/ATROPINE 1 EACH TABLET PO PRN (09:24)
[2017-01-22] MEDS ORDERED: CIPROFLOXACIN HCL 500 MG TABLET PO SCH (10:00)
[2017-01-22] MEDS ORDERED: CIPROFLOXACIN HCL 500 MG TABLET PO ONE (10:05)
[2017-01-22] MEDS: FERROUS SULFATE 325 MG TABLET PO SCH (11:14)
[2017-01-22] MEDS ORDERED: LACTULOSE 10 GM/15 ML UDC PO SCH ×2 (13:00)
--- NOTE | 2017-01-23 08:45 | Discharge Summary ---
Discharge Summary - Discharge Sumary History of Present Illness: Ana is a 76yo woman with a history of multiple medical problems, including DM2 and MIRANDA with periods of encephalopathy. She presented to the [facility] ER via [facility] after being found confused/disoriented. She was admitted with possible acute hepatic encephalopathy as well as UTI indicated on UA. She is on Lactulose at home, although it is unclear if she takes it regularly. Condition at Discharge: Stable Consultations this Visit: None Procedures this Visit: None Allergies/Adverse Reactions: Allergies Allergy/AdvReac Type Severity Reaction Status Date / Time metronidazole [From Flagyl] AdvReac Unknown Nausea/Vomi Verified 01/03/17 20:22 ting Discharge Summary: Ana was discharge to [facility], where she had been within the last month. She remained clinically stable while here and had some improvement in her orientation. She will continue the Lactulose as prescribed. Diet: Diabetic Activity: As tolerated Condition: Stable Hospital Course: Ammonia level was 378. Lactulose was restarted as an inpatient. Ana remained alert and pleasant/cooperative, but not oriented to place, sometimes was oriented to date. UA was also concerning for UTI that was treated with Vanc and then switched to Cipro. Final culture has now indicated mixed growth consistent with "normal urethral pedro and/or colonizing bacteria" - Final Diagnosis (1) Mental status change Problems: Mental status change d/t hepatic encephalopathy with Ammonia 378. Pt stable/ improved. Able to get up and use the bathroom. Vitals stable. Continue Lactulose. (2) Urinary tract infection Problems: Culture did not indicate acute cystitis. (3) Hepatic encephalopathy Problems: As said, ammonia level was 378. Not clear if she was taking the Lactulose at home. Will continue Lactulose.
== END 2017-01-22 11:45 ==
LOC: ED 17:35 → SOUTH 20:23
PROVIDERS: ADMIT Physician Assistant; ATTEND Family Medicine
DX: K72.11 Chronic hepatic failure with coma (principal); N39.0 Urinary tract infection, site not specified
CPT/HCPCS: 36415; 36600; 70450; 71010; 73090; 73110; 73130; 80053; 81002; 82140; 82803; 83880; 84484; 85025; 85027; 85610; 85730; 87086; 96361; 96365; 96366; 96372; 96375; 96376; 99284; J1650; J1815; J3370; J7050; J7060; G0378; J7030; S1016

== ENCOUNTER 2017-02-06 10:04 | Outpatient (CLI) | payer MEDICARE, OTHER | END 2017-02-06 10:05 | LOC: LAB 10:04 | PROVIDERS: ATTEND Family Medicine | DX: K74.60 Unspecified cirrhosis of liver (principal) | CPT/HCPCS: 36415; 82140 ==

== ENCOUNTER 2017-02-28 13:54 | Outpatient (CLI) | payer MEDICARE, OTHER | END 2017-02-28 13:55 | LOC: LAB 13:54 | PROVIDERS: ATTEND Family Medicine | DX: K74.60 Unspecified cirrhosis of liver (principal) | CPT/HCPCS: 36415; 82140 ==

== ENCOUNTER 2017-03-06 14:16 | Outpatient (CLI) | payer MEDICARE, OTHER | END 2017-03-06 14:17 | LOC: LAB 14:16 | PROVIDERS: ATTEND Family Medicine | DX: K74.60 Unspecified cirrhosis of liver (principal) | CPT/HCPCS: 36415; 82140 ==

== ENCOUNTER 2017-04-23 13:52 | Emergency (ER) | payer MEDICARE, OTHER ==
--- NOTE | 2017-04-23 14:11 | ED Physician Documentation ---
General Adult - HISTORIAN Historian: patient - HPI Stated Complaint: fall, R shoulder pain Chief Complaint: General Adult Onset: days ago (2) Timing: still present Severity: moderate Further Comments: yes (Pt is a 76 yo female who fell 2 days ago, tripping over her husbands oxygen tubing. Pt fell from stairs in the stairwell and struck a doorjam with the point of her R shoulder. Pt has been unable to raise her R arm normally and has pain in R shoulder.) - ROS CONST: no problems EYES/ENT: none CVS/RESP: none GI/: none MS/SKIN/LYMPH: other (R shoulder pain) - PAST HX Past History: other (anxiety/depression, anemia, DM, GERD, HTN, Falls, Cirrhosis , MIRANDA, uterine cancer) Surgeries/Procedures: cholecystectomy, hysterectomy, other (appendectomy, hernia repair, R Total knee replacement, Tonsillectomy, breast bx.) Allergies/Adverse Reactions: Allergies Allergy/AdvReac Type Severity Reaction Status Date / Time metronidazole [From Flagyl] AdvReac Unknown Nausea/Vomi Verified 04/23/17 14:12 ting Home Medications: Ambulatory Orders Medication Instructions Recorded Lactulose [Enulose] 30 ml PO BID 04/23/17 Rifaximin [Xifaxan] 550 mg PO BID 04/23/17 - SOCIAL HX Smoking History: cigarettes - FAMILY HX Family History: Yes (Mother: CVA; Father: COPD.) - VITAL SIGNS Vital Signs: Vital Signs Temp Pulse Resp BP Pulse Ox 158/66 01/22/17 09:33 - REVIEWED ASSESSMENTS Nursing Assessment Reviewed: Yes Vitals Reviewed: Yes Progress - Progress Progress: Percocet (). 2 tabs po in ER. R shoulder x-ray: Distal clavicle degenerative changes. Ossific spurring identified on a single view - fracture cannot be excluded. Acromioclavicular joint space widening and elevation suggesting ligament injury. Suspect Grade III or IV Right A-C separation, based on x-ray and clinical exam. Pt will needed ortho f/u. Sling. Rx Percocet (). Take one or two tablets by mouth every 4 to 6 hrs as needed for moderate to severe pain. Disp: #20. Follow up with orthopedist at either [facility] or [facility]. Call for next available appointment. [facility] Tel. [phone] [facility] Tel. [phone] (ask for Ortho Clinic). General Adult Physical Exam - PHYSICAL EXAM GENERAL APPEARANCE: moderate distress NECK: normal inspection, supple RESPIRATORY: no resp distress, chest non-tender, breath sounds normal CVS: reg rate & rhythm, heart sounds normal ABDOMEN: soft, no organomegaly, normal bowel sounds BACK: normal inspection SKIN: other (ecchymosis R shoulder and clavicle) EXTREMITIES: other (exquisite tenderness with palpation of R clavicle. Pt cannot extend at R shoulder.) NEURO: oriented X3, motor nml, sensation nml Discharge Clincal Impression: Grade 3 separation of right shoulder Referrals: Katrin Carias MD [Primary Care Provider] - Condition: Stable Disposition: 01 HOME, SELF-CARE Decision to Admit: NO Decision Time: 15:01
[2017-04-23] MEDS: oxyCODONE/ACETAMINOPHEN 5/325 TABLET PO ONE (14:22)
--- NOTE | 2017-04-23 14:46 | Diagnostic Imaging Report ---
[facility] [address] [facility] [address] Report Submission Date: Apr 23, 2017 2:43:50 PM CDT Patient Study Name: LIBBY LAZCANO Date: Apr 23, 2017 2:19:59 PM CDT Modality Type: CR Gender: F Description: SHOULDER : 40 Institution: [facility] Physician: TAMIKO SORENSEN - ER Examination: Plain film shoulder History: Fall Comparison exams: None provided Findings: 3 views of the shoulder demonstrates degenerative changes involving the distal clavicle. Ossific spurring identified on scapular view. Widening of the acromioclavicular space measuring 11 mm. Mild elevation of the distal clavicle with respect to the acromion Humeral head with degenerative changes. No gross soft tissue abnormality. Impression: Distal clavicle degenerative changes. Ossific spurring identified on a single view - fracture cannot be excluded. Acromioclavicular joint space widening and elevation suggesting ligament injury. Electronically signed on Apr 23, 2017 2:43:50 PM CDT by: Antione MALDONADO
[2017-04-23 15:23] VITALS: BP 142/74
== END 2017-04-23 15:21 | disposition home or self-care (01) ==
LOC: ED 13:52
DX: S43.004A Unspecified dislocation of right shoulder joint, initial encounter (principal); W19.XXXA Unspecified fall, initial encounter; Y93.9 Activity, unspecified; Y99.9 Unspecified external cause status
CPT/HCPCS: 73030; A9270; 99283

== ENCOUNTER 2017-12-05 13:21 | Outpatient (CLI) | payer MEDICARE, OTHER ==
[2017-12-05 13:39] LABS: BASOPHILS % 0.3 (0.0-1.5); EOSINOPHILS % 4.2 % (0.0-6.8); MEAN CORPUSCULAR HEMOGLOBIN 30.3 pg (28.0-34.0); MEAN CORPUSCULAR VOLUME 95.5 fl (80.0-100.0); NEUTROPHILS # 2.8 # k/uL (1.4-7.7)
[2017-12-05 14:06] LABS: eGFR (African) > 60; eGFR (Non-African) > 60
== END 2017-12-05 13:22 ==
LOC: LAB 13:21
PROVIDERS: ATTEND Family Medicine
DX: E11.9 Type 2 diabetes mellitus without complications (principal); R60.9 Edema, unspecified; Z20.5 Contact with and (suspected) exposure to viral hepatitis
CPT/HCPCS: 36415; 80053; 83036; 85025; 86803

== ENCOUNTER 2018-03-20 15:11 | Outpatient (CLI) | payer MEDICARE, OTHER ==
[2018-03-20 16:41] LABS: MEAN CORPUSCULAR VOLUME 92.7 fl (80.0-100.0)
[2018-03-20 17:08] LABS: eGFR (Non-African) > 60
== END 2018-03-20 15:12 ==
LOC: LAB 15:11
PROVIDERS: ATTEND Family Medicine
DX: E11.9 Type 2 diabetes mellitus without complications (principal); R11.2 Nausea with vomiting, unspecified
CPT/HCPCS: 36415; 80053; 83036; 85027

== ENCOUNTER 2018-03-21 16:20 | Outpatient (CLI) | payer MEDICARE, OTHER | END 2018-03-21 16:21 | LOC: LABRHC 16:20 | PROVIDERS: ATTEND Family Medicine | DX: R30.0 Dysuria (principal) | CPT/HCPCS: 87086; 87186 ==

== ENCOUNTER 2018-03-26 20:18 | Inpatient (IN) | payer MEDICARE, OTHER ==
--- NOTE | 2018-03-26 20:38 | ED Physician Documentation ---
General Adult - HISTORIAN Historian: patient - HPI Stated Complaint: fall, shoulder pain Chief Complaint: General Adult Onset: hours Timing: still present Severity: moderate Further Comments: yes (Pt is a 77 yo female who lives alone and fell yesterday morning while trying to get up from her recliner. She dropped her phone in the fall and was unable to contact anyone for more than 30 hours while she remained on the floor. Neighbors called EMS after hearing pt calling out. Pt re-injured her R shoulder in the fall. She has a previous R clavicle fracture. Pt has hx of mult medical issues, including MIRANDA with encephalopathy. Pt has had nausea. No chest pain/sob. Pt c/o weakness.) - ROS CONST: weakness EYES/ENT: none CVS/RESP: none GI/: nausea MS/SKIN/LYMPH: other (R shoulder pain) NEURO/PSYCH: other (weakness) - PAST HX Past History: other (Cirrhosis, MIRANDA encephalopathy; HTN; GERD; Anemia NOS, Depression, DM2) Surgeries/Procedures: other (appendectomy, cholecystectomy, hysterectomy, hernia repair, R total knee replacement; tonsillectomy; breast biopsy.) Allergies/Adverse Reactions: Allergies Allergy/AdvReac Type Severity Reaction Status Date / Time metronidazole [From Flagyl] AdvReac Unknown Nausea/Vomi Verified 03/26/18 21:46 ting Home Medications: Ambulatory Orders Medication Instructions Recorded Tramadol HCl [Ultram] 50 - 100 mg PO TID PRN u2 01/26/18 - SOCIAL HX Smoking History: cigarettes - FAMILY HX Family History: Yes (CVA) - VITAL SIGNS Vital Signs: Vital Signs Temp Pulse Resp BP Pulse Ox 142/74 04/23/17 15:21 - REVIEWED ASSESSMENTS Nursing Assessment Reviewed: Yes Vitals Reviewed: Yes Progress - Progress Progress: NS 1 L IVF Zofran 4 mg IV x 2 Dilaudid 0.5 mg IV CXR: Findings: The exam is limited by obesity . Mild right hemidiaphragm elevation is observed. There is at least mild atelectasis at the lung bases. The cardiac silhouette is enlarged. There is no significant pleural effusion. An old distal right clavicle deformity is noted. Impression: 1. At least mild bibasilar atelectasis. 2. Mild right hemidiaphragm elevation. 3. Cardiomegaly. X-ray R shoulder: Examination right shoulder in multiple views demonstrates an old fracture of the lateral clavicle. There is no evidence of acute fracture. The glenohumeral relationship is anatomic. Impression: 1. No acute fracture. Admit to Dr. Fair. - EKG/XRAY/CT EKG: rhythm (Sinus tachycardia, HR = 105; RBBB, LAFB; LAD) General Adult Physical Exam - PHYSICAL EXAM GENERAL APPEARANCE: moderate distress EENT: dry mucous membranes NECK: normal inspection, supple RESPIRATORY: no resp distress, chest non-tender, rales (mild, basilar) CVS: tachycardia (distant heart sounds) ABDOMEN: soft, no organomegaly, decreased BS BACK: normal inspection, no CVA tenderness SKIN: warm/dry EXTREMITIES: other (tenderness R shoulder and clavicle; inhibited motion 2nd pain ) NEURO: motor nml, sensation nml, other (baseline mental status per family) Discharge Clincal Impression: dehydration, R shoulder pain, nausea, Total bilirubin, elevated, Hx MIRANDA, Fall, ? safety at home Rhabdomyolysis Qualifiers: Rhabdomyolysis type: non-traumatic Qualified Code(s): M62.82 - Rhabdomyolysis Condition: Stable Disposition: ADMITTED INPATIENT Decision to Admit: [id number] Decision Time: 00:20
[2018-03-26] MEDS ORDERED: 0.9 % SODIUM CHLORIDE 1,000 ML IV ONE ×2 (20:49→20:52)
[2018-03-26] MEDS ORDERED: ONDANSETRON HCL/PF 4 MG/ 2ML VIAL ONE (20:49)
[2018-03-26] MEDS ORDERED: ONDANSETRON HCL/PF 4 MG/ 2ML VIAL IVP ONE (20:53)
[2018-03-26 21:22] LABS: eGFR (Non-African) > 60
[2018-03-26] MEDS ORDERED: HYDROmorphone HCL/PF 1 MG/ML DISP.SYRIN IVP ONE (22:48)
[2018-03-26] MEDS ORDERED: HYDROmorphone HCL/PF 2 MG/ML DISP.SYRIN ONE (22:51)
[2018-03-27 00:03] LABS: BASO % 0.3 % (0.0-1.5); EOS % 1.6 % (0.0-6.8); MCH. 30.1 pg (28.0-34.0); MCV 90.3 fL (80.0-100.0); MONOCYTE % 9.1 % (0.0-11.0); MONOCYTE ABS # 0.69 thou/uL (0.00-0.90); PLATELET COUNT 164 thou/uL (130-400)
[2018-03-27] MEDS ORDERED: 0.9 % SODIUM CHLORIDE 500 ML IV ONE (00:15)
[2018-03-27] MEDS ORDERED: ONDANSETRON HCL/PF 4 MG/ 2ML VIAL IVP PRN (00:54)
[2018-03-27] MEDS: 0.9 % SODIUM CHLORIDE 1,000 ML IV SCH ×2 (01:20→11:51)
[2018-03-27 02:16] VITALS: BMI 40.0
[2018-03-27 05:41] LABS: BASO % 0.3 % (0.0-1.5); EOS % 3.5 % (0.0-6.8); LYMPH ABS # 1.44 thou/uL (0.60-4.00); MCV 90.7 fL (80.0-100.0); MONOCYTE % 10.5 % (0.0-11.0); MONOCYTE ABS # 0.63 thou/uL (0.00-0.90); PLATELET COUNT 55 thou/uL (130-400)
[2018-03-27] MEDS: traMADol HCL 50 MG TABLET PO PRN ×2 (05:43→20:29)
[2018-03-27] MEDS: PANTOPRAZOLE SODIUM 40 MG TABLET PO SCH ×2 (06:12→16:53)
[2018-03-27 06:24] LABS: eGFR (Non-African) > 60
--- NOTE | 2018-03-27 06:34 | Diagnostic Imaging Report ---
TAMIKO SORENSEN [facility] [address] [facility] [address] [address] Report Submission Date: Mar 26, 2018 9:32:16 PM CDT Patient Study Name: LIBBY LAZCANO Date: Mar 26, 2018 9:09:15 PM CDT Modality Type: DX Gender: F Description: CHEST : 40 Institution: [facility] Physician: TAMIKO SORENSEN Portable chest History: Weakness and fall Findings: The exam is limited by obesity . Mild right hemidiaphragm elevation is observed. There is at least mild atelectasis at the lung bases. The cardiac silhouette is enlarged. There is no significant pleural effusion. An old distal right clavicle deformity is noted. Impression: 1. At least mild bibasilar atelectasis. 2. Mild right hemidiaphragm elevation. 3. Cardiomegaly. Electronically signed on Mar 26, 2018 9:32:16 PM CDT by: Aleksandr MALDONADO
--- NOTE | 2018-03-27 06:34 | Diagnostic Imaging Report ---
TAMIKO SORENSEN [facility] [address] [facility] [address] [address] Report Submission Date: Mar 26, 2018 10:31:27 PM CDT Patient Study Name: LIBBY LAZCANO Date: Mar 26, 2018 9:52:24 PM CDT Modality Type: DX Gender: F Description: SHOULDER : 40 Institution: [facility] Physician: TAMIKO SORENSEN Three views of the right shoulder Clinical history: Fall. Pain. Findings: Examination right shoulder in multiple views demonstrates an old fracture of the lateral clavicle. There is no evidence of acute fracture. The glenohumeral relationship is anatomic. Impression: 1. No acute fracture Electronically signed on Mar 26, 2018 10:31:27 PM CDT by: Antoni MALDONADO
--- NOTE | 2018-03-27 08:15 | History and Physical Report ---
History of Present Illnes - History of Present Illness Reason for Visit: Weakness History of Present Illness: Patient reports on 03-25 she fell over in a chair while reaching for something. Both of her phones ended up being trapped under the chair. She crawled around on the floors - going to the kitchen tile to urinate and have a bowel movement. Finally after 30 hours, her neighbor heard her and called EMS. She reports she did end up getting the phone and leaving her daughter who lives an hour away a message. She isn't sure whey she didn't call 911. [place] pain in her R shoulder that she had in the past. Xrays in the ER were negative. Feels very hungry this am. CK in the ER elevated by MB normal. STarted on IVF. She has a h/o hepatic encephalopathy with frequent MICU admisstions until lactulose was stopped and rifimaxin started. She has not seen GI since 02/23 but has an appt on 04-19-18 at 3:00 pm. She was seen last week in clinic and had a urine culture done that grew E. Coli and Klebsiella. I left her a message Monday night that we needed to start an tibiotics for this. She had come in with vomiting for 4 days but was feeling much better that day. Labs were normal at that time. Interesting that as I am looking at patient's medication bottles,the rifaximin hasn't been filled since 07/26. The glipizide was filled 10/25 for 90 and the bottle is half full. She swears she has been taking this. Atenolol also hasn't been filled since 07/26. - Past Medical History Cardiac: HTN, Other (RBBB) Gastrointestinal: GERD (Stroud's), Other (MIRANDA cirrhosis with hepatic encephalopathy; portal hypertensive gastropathy) Heme/Onc: Anemia NOS, Other (uterine CA) Hepatobiliary: Cirrhosis, Other (MIRANDA) Psych: Depression Endocrine: Diabetes - Past Surgical History Past Surgical History: Appendectomy, Cholecystectomy, Hysterectomy (UTerine CA), Hernia Repair, Other (parathyroidectomy), Total Knee Replacement (R), Tonsillectomy, Other (Breast bx. EGD 12/23.) - Past Social History Smoke: No Alcohol: None Lives: Alone ( 2018 - Daughter lives about an hour away.) - Health Maintenance Health Maintenance: Tetanus, Pneumococcal Vaccine, Colonoscopy (01-29-15) Influenza Vaccine: No Pneumonia Vaccine: Yes Resuscitation Status: Resusciation Status Resuscitation Status Full Code Review of Systems - Review of Systems Constitutional: Weakness. negative: Fever Eyes: negative: pain ENT: negative: Nose Discharge Respiratory: negative: Cough, Shortness of Breath Cardiovascular: negative: Chest Pain Gastrointestinal: negative: Nausea, Vomiting, Abdominal Pain Genitourinary: negative: Dysuria Musculoskeletal: Shoulder Pain (R). negative: Neck Pain Skin: negative: Rash Neurological: Weakness - Medications/Allergies Allergies/Adverse Reactions: Allergies Allergy/AdvReac Type Severity Reaction Status Date / Time metronidazole [From Flagyl] AdvReac Unknown Nausea/Vomi Verified 03/26/18 21:46 ting Current Inpatient Medications: Current Inpatient Medications Atenolol (Tenormin) 50 mg PO DAILY [facility] Stop: 04/01/18 23:59 Ciprofloxacin (Cipro) 500 mg PO bid x 7 days [facility] Stop: 04/06/18 00:59 Glipizide (Glucotrol Xl) 10 mg PO 0730 [facility] Sodium Chloride (Normal Saline) 1,000 mls @ 100 mls/hr IV Q10H [facility] Last Admin: 03/27/18 01:20 Dose: 100 mls/hr Miscellaneous (Chem Sticks) 1 each MC CHEMQID [facility] Last Admin: 03/27/18 07:56 Dose: 1 each Ondansetron HCl (Zofran 4 Mg/2 Ml) 4 mg IVP Q6H PRN PRN Reason: Nausea / Vomiting Stop: 03/28/18 23:59 Pantoprazole Sodium (Protonix) 40 mg PO 717 [facility] Stop: 04/02/18 23:59 Last Admin: 03/27/18 06:12 Dose: 40 mg Rifaximin (Xifaxan) 550 mg PO BID [facility] Tramadol HCl (Ultram) 50 mg PO TID PRN PRN Reason: PAIN Stop: 04/02/18 23:59 Last Admin: 03/27/18 05:43 Dose: 50 mg Exam - Exam Vital Signs: Vital Signs (72 hours) 03/26/18 03/26/18 03/26/18 20:45 20:52 21:22 Temperature 97.9 F Pulse Rate 104 H 105 H Pulse Rate [ 112 H Pulse ox] Respiratory 26 H Rate Blood Pressure [Left Arm] Blood Pressure 164/77 [Right Arm] O2 Sat by Pulse 96 96 95 Oximetry 03/26/18 03/26/18 03/26/18 21:30 22:00 22:30 Temperature Pulse Rate 106 H 102 H 103 H Pulse Rate [ Pulse ox] Respiratory Rate Blood Pressure [Left Arm] Blood Pressure [Right Arm] O2 Sat by Pulse 96 93 93 Oximetry 03/26/18 03/26/18 03/27/18 23:00 23:30 00:00 Temperature Pulse Rate 104 H 102 H 117 H Pulse Rate [ Pulse ox] Respiratory Rate Blood Pressure [Left Arm] Blood Pressure [Right Arm] O2 Sat by Pulse 92 93 93 Oximetry 03/27/18 03/27/18 03/27/18 00:30 01:00 01:03 Temperature 98.7 F Pulse Rate 98 H 96 H Pulse Rate [ 90 Pulse ox] Respiratory 20 Rate Blood Pressure 157/50 [Left Arm] Blood Pressure [Right Arm] O2 Sat by Pulse 94 97 97 Oximetry 03/27/18 03/27/18 03/27/18 01:07 02:00 05:49 Temperature 98.7 F Pulse Rate 108 H Pulse Rate [ 92 H 92 H Pulse ox] Respiratory 17 20 Rate Blood Pressure 157/50 [Left Arm] Blood Pressure 133/47 [Right Arm] O2 Sat by Pulse 92 98 97 Oximetry 03/27/18 03/27/18 03/27/18 05:52 05:55 05:57 Temperature 98.7 F Pulse Rate 97 H Pulse Rate [ 97 H 97 H Pulse ox] Respiratory 20 20 Rate Blood Pressure 155/54 [Left Arm] Blood Pressure [Right Arm] O2 Sat by Pulse 97 Oximetry General: Alert, Oriented to Person, Oriented to Place, Oriented to Time, Cooperative, No acute distress HEENT: Atraumatic, PERRLA, EOMI, Mouth Mucous membr. moist/Foyil, Nose Mucous membr. moist/Foyil Neck: Normal Range of Motion Lungs: Clear to auscultation, Normal air movement, Speaks full Sentences Cardiovascular: Regular rate Abdomen: Soft, No tenderness, Decreased Bowel Sounds Integumentary: Normal Extremities: No edema Neurological: Generalized Weakness Psych/Mental Status: Mental status NL, Mood NL, Appropriate Affect, Intact Judgment - Laboratory Results Laboratory Results: Laboratory Results 03/26/18 03/26/18 03/26/18 20:57 20:57 20:57 WBC Comment 7.53 RBC 4.29 Hemoglobin (Send Out) 12.9 Hct (Send Out) 38.7 MCV (Send Out) 90.3 MCH 30.1 MCHC (Send Out) 33.3 RDW Coeff of Héctor 14.9 H Plt Count 164 Absolute Lymphs (auto) 1.20 Absolute Monos (auto) 0.69 Absolute Basos (auto) 0.02 Neutrophils % 73.0 Absolute Neutrophils 5.50 Lymphocytes 15.9 L Monocytes 9.1 Absolute Eosinophils 0.12 Basophilia % 0.3 Eosinophil Count 1.6 Sodium 138 Potassium 3.5 Chloride 116 H Carbon Dioxide 24 BUN 16 Creatinine 0.60 Estimated Creat Clear 145 Est GFR ( Amer) > 60 Est GFR (Non-Af Amer) > 60 Glucose 163 H Calcium 8.9 Total Bilirubin 2.2 H AST 39 ALT 34 Alkaline Phosphatase 156 H Ammonia Creatine Kinase 500 H CK-MB (CK-2) 4.4 Troponin I < 0.03 L NT-Pro-B Natriuret Pep 344.8 Total Protein 6.4 Albumin 3.4 L 03/26/18 03/27/18 03/27/18 22:25 04:06 04:07 WBC Comment RBC Hemoglobin (Send Out) Hct (Send Out) MCV (Send Out) MCH MCHC (Send Out) RDW Coeff of Héctor Plt Count Absolute Lymphs (auto) Absolute Monos (auto) Absolute Basos (auto) Neutrophils % Absolute Neutrophils Lymphocytes Monocytes Absolute Eosinophils Basophilia % Eosinophil Count Sodium 136 Potassium 3.9 Chloride 117 H Carbon Dioxide 25 BUN 16 Creatinine 0.60 Estimated Creat Clear 149 Est GFR ( Amer) > 60 Est GFR (Non-Af Amer) > 60 Glucose 127 H Calcium 7.9 L Total Bilirubin 2.4 H AST 58 H ALT 27 Alkaline Phosphatase 113 Ammonia 72 Creatine Kinase 428 H CK-MB (CK-2) 3.2 Troponin I < 0.03 L NT-Pro-B Natriuret Pep Total Protein 5.6 L Albumin 2.8 L 03/27/18 04:07 WBC Comment 5.99 RBC 3.67 L Hemoglobin (Send Out) 11.0 L Hct (Send Out) 33.3 L MCV (Send Out) 90.7 MCH 30.0 MCHC (Send Out) 33.0 RDW Coeff of Héctor 15.1 H Plt Count 55 L Absolute Lymphs (auto) 1.44 Absolute Monos (auto) 0.63 Absolute Basos (auto) 0.02 Neutrophils % 61.8 Absolute Neutrophils 3.70 Lymphocytes 24.0 Monocytes 10.5 Absolute Eosinophils 0.21 Basophilia % 0.3 Eosinophil Count 3.5 Sodium Potassium Chloride Carbon Dioxide BUN Creatinine Estimated Creat Clear Est GFR ( Amer) Est GFR (Non-Af Amer) Glucose Calcium Total Bilirubin AST ALT Alkaline Phosphatase Ammonia Creatine Kinase CK-MB (CK-2) Troponin I NT-Pro-B Natriuret Pep Total Protein Albumin Assessment/Plan - Assessment/Plan (1) Diabetes Status: Acute Current Visit: Yes Qualifiers: Diabetes mellitus type: type 2 Diabetes mellitus custodial insulin use: without custodial use Diabetes mellitus complication status: without complication Qualified Code(s): E11.9 - Type 2 diabetes mellitus without complications Plan: A1c 03/27 was 6.5. Unsure if patient has been taking her glipizide. Will hold medication and check BS. (2) Rhabdomyolysis Status: Acute Current Visit: Yes Qualifiers: Rhabdomyolysis type: traumatic Encounter type: initial encounter Qualified Code(s): T79.6XXA - Traumatic ischemia of muscle, initial encounter Plan: IVF for treatment. Watch for fluid overload. Monitor CK. (3) Total bilirubin, elevated Status: Acute Current Visit: Yes Plan: Bilirubin 03-20-18 was normal at 1.1 (4) Urinary tract infection Status: Acute Current Visit: No Qualifiers: Urinary tract infection type: acute cystitis Hematuria presence: without hematuria Qualified Code(s): N30.00 - Acute cystitis without hematuria Plan: Will start cipro 500 mg bid treatment. 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 She has been off her meds for 2 days. Will restart. Check ammonia. May need to use lactulose. VTE Assessment - RISK FACTOR SCORE VTE RISK FACTOR SCORES: AGE OVER 60 YEARS - RISK VTE LOW RISK: SCORE OF 1 OR LESS (RISK PROXIMAL DVT 0.4%) NO PROPHYLAXIS NEEDED
[2018-03-27] MEDS: ATENOLOL 25 MG TABLET PO SCH (08:51)
[2018-03-27] MEDS ORDERED: PANTOPRAZOLE SODIUM 40 MG TABLET PO SCH (09:00)
[2018-03-27] MEDS: CIPROFLOXACIN HCL 500 MG TABLET PO SCH ×3 (10:31→20:31)
[2018-03-27] MEDS: RIFAXIMIN 550 MG TABLET PO SCH ×2 (10:31→20:40)
[2018-03-27] MEDS ORDERED: CIPROFLOXACIN HCL 500 MG TABLET PO SCH (13:00)
[2018-03-27] MEDS: NICOTINE 21mg 1 EACH PATCH.TD24 TD SCH (15:44)
[2018-03-28] MEDS: 0.9 % SODIUM CHLORIDE 1,000 ML IV SCH ×2 (04:08→08:07)
[2018-03-28] MEDS: traMADol HCL 50 MG TABLET PO PRN ×2 (05:05→20:12)
[2018-03-28] MEDS: PANTOPRAZOLE SODIUM 40 MG TABLET PO SCH ×2 (06:22→16:26)
[2018-03-28] MEDS: NICOTINE 21mg 1 EACH PATCH.TD24 TD SCH (08:06)
[2018-03-28] MEDS: ATENOLOL 25 MG TABLET PO SCH (08:06)
[2018-03-28] MEDS: RIFAXIMIN 550 MG TABLET PO SCH ×2 (08:06→20:13)
[2018-03-28] MEDS: CIPROFLOXACIN HCL 500 MG TABLET PO SCH ×2 (08:06→20:13)
--- NOTE | 2018-03-28 09:42 | Inpatient Progress Note ---
Subjective - Required Recertification Statement I anticipate X number of days because-include discharge plan: 2 - Review of Systems Subjective: Patient is feeling better. Still feels very weak. Objective - Exam Vitals and I&O: Vital Signs Temp 97.9 F 03/28/18 09:22 Pulse 71 03/28/18 09:22 Resp 16 03/28/18 09:22 BP 150/59 03/28/18 09:22 Pulse Ox 94 03/28/18 09:22 Intake & Output 03/27/18 03/27/18 03/28/18 11:59 23:59 11:59 Intake Total 961 2996 2280 Balance 961 2996 2280 Weight 102.512 kg Intake: IV 401 1726 1600 R hand proximal thumb 401 1726 1600 Oral 560 1270 680 Other: Voiding Method Toilet Toilet Toilet # Voids 5 2 5 General: Alert, Oriented to Person, Oriented to Place, Oriented to Time, Cooperative, No acute distress Lungs: Clear to auscultation, Normal air movement, Speaks full Sentences Cardiovascular: Regular rate - Results Results: Laboratory Results WBC Comment 5.99 thou/uL (4.00-12.00) 03/27/18 04:07 RBC 3.67 mil/uL (3.90-5.20) L 03/27/18 04:07 Hemoglobin (Send Out) 11.0 g/dL (11.5-16.0) L 03/27/18 04:07 Hct (Send Out) 33.3 % (34.5-46.5) L 03/27/18 04:07 MCV (Send Out) 90.7 fL (80.0-100.0) 03/27/18 04:07 MCH 30.0 pg (28.0-34.0) 03/27/18 04:07 MCHC (Send Out) 33.0 g/dL (30.0-36.0) 03/27/18 04:07 RDW Coeff of Héctor 15.1 % (11.3-14.7) H 03/27/18 04:07 Plt Count 55 thou/uL (130-400) L 03/27/18 04:07 Absolute Lymphs (auto) 1.44 thou/uL (0.60-4.00) 03/27/18 04:07 Absolute Monos (auto) 0.63 thou/uL (0.00-0.90) 03/27/18 04:07 Absolute Basos (auto) 0.02 thou/uL (0.00-0.50) 03/27/18 04:07 Neutrophils % 61.8 % (39.0-79.0) 03/27/18 04:07 Absolute Neutrophils 3.70 thou/uL (1.50-7.70) 03/27/18 04:07 Lymphocytes 24.0 % (16.0-50.0) 03/27/18 04:07 Monocytes 10.5 % (0.0-11.0) 03/27/18 04:07 Absolute Eosinophils 0.21 thou/uL (0.00-0.60) 03/27/18 04:07 Basophilia % 0.3 % (0.0-1.5) 03/27/18 04:07 Eosinophil Count 3.5 % (0.0-6.8) 03/27/18 04:07 Sodium 136 mmol/L (136-145) 03/27/18 04:07 Potassium 3.9 mmol/L (3.5-5.1) 03/27/18 04:07 Chloride 117 mmol/L (98-107) H 03/27/18 04:07 Carbon Dioxide 25 mmol/L (22-30) 03/27/18 04:07 BUN 16 mg/dL (7-17) 03/27/18 04:07 Creatinine 0.60 mg/dL (0.52-1.04) 03/27/18 04:07 Estimated Creat Clear 149 03/27/18 04:07 Est GFR ( Amer) > 60 (60-) 03/27/18 04:07 Est GFR (Non-Af Amer) > 60 (60-) 03/27/18 04:07 Glucose 127 mg/dL (74-106) H 03/27/18 04:07 Calcium 7.9 mg/dL (8.4-10.2) L 03/27/18 04:07 Total Bilirubin 2.4 mg/dL (0.2-1.3) H 03/27/18 04:07 AST 58 U/L (15-46) H 03/27/18 04:07 ALT 27 U/L (13-69) 03/27/18 04:07 Alkaline Phosphatase 113 U/L (38-126) 03/27/18 04:07 Ammonia 133 ug/dL (17-87) H 03/27/18 09:40 Creatine Kinase 457 U/L (30-135) H 03/27/18 09:48 CK-MB (CK-2) 3.2 ng/mL (0.0-5.6) 03/27/18 04:06 Troponin I < 0.03 ng/mL (0.03-0.06) L 03/27/18 04:06 NT-Pro-B Natriuret Pep 344.8 pg/mL (15.0-450.0) 03/26/18 20:57 Total Protein 5.6 g/dL (6.3-8.2) L 03/27/18 04:07 Albumin 2.8 g/dL (3.5-5.0) L 03/27/18 04:07 Assessment/Plan - Assessment/Plan (1) Diabetes Status: Acute Current Visit: Yes Qualifiers: Diabetes mellitus type: type 2 Diabetes mellitus lobsterman insulin use: without nursing home use Diabetes mellitus complication status: without complication Qualified Code(s): E11.9 - Type 2 diabetes mellitus without complications Plan: REstart glipizide ER but at 5 mg. Watch closely. (2) Rhabdomyolysis Status: Acute Current Visit: Yes Qualifiers: Rhabdomyolysis type: traumatic Encounter type: initial encounter Qualified Code(s): T79.6XXA - Traumatic ischemia of muscle, initial encounter Plan: CK improving but so is sodium. Will SLIV. Watch closely. (3) Total bilirubin, elevated Status: Acute Current Visit: Yes Plan: Bilirubin back to normal. 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 Certainly concerned about patient being able to return to her prior living condition. Will get T[facility] Worker consult to work on possible placement. (6) Anemia Status: Acute Current Visit: Yes Qualifiers: Anemia type: unspecified type Qualified Code(s): D64.9 - Anemia, unspecified Plan: Suspect dilutional. Will SLIV and observe. Patient was not started on Lovenox on admission. Platelets have been off. Will watch. 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
[2018-03-28] MEDS: LACTULOSE 10 GM/15 ML UDC PO SCH (11:00)
[2018-03-28] MEDS ORDERED: NYSTATIN POWDER BOTTLE TP PRN (11:00)
[2018-03-28 11:54] LABS: eGFR (Non-African) > 60
[2018-03-28] MEDS ORDERED: LACTULOSE 10 GM/15 ML UDC PO ONE (13:40)
[2018-03-28 13:51] LABS: BASO % 0.5 % (0.0-1.5); EOS % 5.6 % (0.0-6.8); LYMPH ABS # 2.05 thou/uL (0.60-4.00); MCH. 30.2 pg (28.0-34.0); MCV 92.2 fL (80.0-100.0); MONOCYTE % 8.1 % (0.0-11.0); MONOCYTE ABS # 0.43 thou/uL (0.00-0.90); PLATELET COUNT 126 thou/uL (130-400)
[2018-03-29] MEDS: traMADol HCL 50 MG TABLET PO PRN (04:10)
[2018-03-29] MEDS: PANTOPRAZOLE SODIUM 40 MG TABLET PO SCH (06:00)
[2018-03-29 07:27] LABS: eGFR (Non-African) > 60
[2018-03-29] MEDS ORDERED: LACTULOSE 10 GM/15 ML UDC PO ONE (07:50)
[2018-03-29 08:20] LABS: BASO % 0.3 % (0.0-1.5); EOS % 7.3 % (0.0-6.8); LYMPH ABS # 1.72 thou/uL (0.60-4.00); MCH. 29.4 pg (28.0-34.0); MCV 90.8 fL (80.0-100.0); MONOCYTE % 7.4 % (0.0-11.0); MONOCYTE ABS # 0.32 thou/uL (0.00-0.90); PLATELET COUNT 112 thou/uL (130-400)
[2018-03-29] MEDS: ATENOLOL 25 MG TABLET PO SCH (09:40)
[2018-03-29] MEDS: CIPROFLOXACIN HCL 500 MG TABLET PO SCH (09:40)
[2018-03-29] MEDS: NICOTINE 21mg 1 EACH PATCH.TD24 TD SCH (09:42)
[2018-03-29] MEDS: RIFAXIMIN 550 MG TABLET PO SCH (09:49)
[2018-03-29] MEDS: LACTULOSE 10 GM/15 ML UDC PO SCH (12:08)
--- NOTE | 2018-03-29 13:22 | Discharge Summary ---
Discharge Summary - Discharge Sumary History of Present Illness: Patient reports on 03-25 she fell over in a chair while reaching for something. Both of her phones ended up being trapped under the chair. She crawled around on the floors - going to the kitchen tile to urinate and have a bowel movement. Finally after 30 hours, her neighbor heard her and called EMS. She reports she did end up getting the phone and leaving her daughter who lives an hour away a message. She isn't sure whey she didn't call 911. [place] pain in her R shoulder that she had in the past. Xrays in the ER were negative. Feels very hungry this am. CK in the ER elevated by MB normal. STarted on IVF. She has a h/o hepatic encephalopathy with frequent MICU admisstions until lactulose was stopped and rifimaxin started. She has not seen GI since 02/23 but has an appt on 04-19-18 at 3:00 pm. She was seen last week in clinic and had a urine culture done that grew E. Coli and Klebsiella. I left her a message Monday night that we needed to start antibiotics for this. She had come in with vomiting for 4 days but was feeling much better that day. Labs were normal at that time. Interesting that as I am looking at patient's medication bottles,the rifaximin hasn't been filled since 07/26. The glipizide was filled 10/25 for 90 and the bottle is half full. She swears she has been taking this. Atenolol also hasn't been filled since 07/26. Condition at Discharge: Stable Consultations this Visit: None Allergies/Adverse Reactions: Allergies Allergy/AdvReac Type Severity Reaction Status Date / Time metronidazole [From Flagyl] AdvReac Unknown Nausea/Vomi Verified 03/26/18 21:46 ting Discharge Summary: Patient was admitted after falling at home and laying for over 30 hours. Her CK was elevated but responded well to IV normal saline. I felt her mental status was off from her baseline. Ammonia was elevated at 133. After further investigation, patient had been off her xifamixin for some time. She was given lactulose and restarted. Mental status did clear. Noted to be anemic but thought to be dilutional. Will watch as outpatient. After much discussion with patient, daughter, and neighbors, we elected to try to send her home with home health. She understands if this fails she will need to go to an Assisted living facility. Hospital Course: Discharge Dx. Fall. Rhabdomylosis. Hepatic Encephalopathy. DM. Discharge - home with Home Health.
[2018-03-29 15:49] VITALS: BP 183/74
== END 2018-03-29 15:05 | disposition home health service (06) | DRG 565 ==
LOC: ED 20:18 → SOUTH 20:37 → UNDOADMIN 03-27 00:57 → UNDODISIN 03-29 15:05
PROVIDERS: ADMIT Family Medicine; ATTEND Family Medicine
DX: T79.6XXA Traumatic ischemia of muscle, initial encounter (principal); N30.00 Acute cystitis without hematuria; E11.9 Type 2 diabetes mellitus without complications; K75.81 Nonalcoholic steatohepatitis (NASH); W07.XXXA Fall from chair, initial encounter; Z91.81 History of falling; Y93.89 Activity, other specified; Y92.009 Unspecified place in unspecified non-institutional (private) residence as the place of occurrence of the external cause
CPT/HCPCS: 71045; 73030; 80053; 82140; 82550; 82553; 83880; 84484; 85025; 93005; 97116; 97161; J1170; J2405; J7030; 96360; 96374; 96375; 99222; 99232; 99238; A9270-GY; S1016

== ENCOUNTER 2018-04-03 11:30 | Outpatient (CLI) | payer MEDICARE, OTHER ==
[2018-04-04 00:51] LABS: BASO % 0.9 % (0.0-1.5); EOS % 5.5 % (0.0-6.8); LYMPH ABS # 1.55 thou/uL (0.60-4.00); MCH. 29.9 pg (28.0-34.0); MCV 93.4 fL (80.0-100.0); MONOCYTE % 7.8 % (0.0-11.0); MONOCYTE ABS # 0.41 thou/uL (0.00-0.90); PLATELET COUNT 132 thou/uL (130-400)
[2018-04-04 03:22] LABS: AMMONIA 161 ug/dL (17-87)
== END 2018-04-03 11:32 ==
LOC: LAB 11:30
PROVIDERS: ATTEND Family Medicine
DX: K72.90 Hepatic failure, unspecified without coma (principal)
CPT/HCPCS: 36415; 80048; 82140; 85025

== ENCOUNTER 2018-07-05 11:19 | Outpatient (CLI) | payer MEDICARE, OTHER | END 2018-07-05 11:21 | LOC: LAB 11:19 | PROVIDERS: ATTEND Family Medicine | DX: E11.9 Type 2 diabetes mellitus without complications (principal); K72.90 Hepatic failure, unspecified without coma; R82.90 Unspecified abnormal findings in urine; B96.4 Proteus (mirabilis) (morganii) as the cause of diseases classified elsewhere; Z16.24 Resistance to multiple antibiotics | CPT/HCPCS: 36415; 82140; 83036; 87086; 87186 ==